=== PATIENT | female | born 1955 | race Two or more races ===

== ENCOUNTER → 2019-11-15 | Outpatient (CLI) | payer OTHER ==
--- NOTE | 2019-11-16 14:50 | MM ---
Reason for exam: screening (asymptomatic). Last mammogram was performed 4 years and 8 months ago. History: Patient is postmenopausal. Physical Findings: A clinical breast exam by your physician is recommended on an annual basis and results should be correlated with mammographic findings. MG Screening Mammo w CAD Bilateral CC and MLO view(s) were taken. Prior study comparison: March 05, 2015, bilateral MG screening mammo w CAD. There are scattered fibroglandular densities. No significant changes when compared with prior studies. ASSESSMENT: Benign, BI-RAD 2 RECOMMENDATION: Routine screening mammogram of both breasts in 1 year.
== END | disposition home or self-care (01) ==
LOC: RADMAMWWP 14:43
PROVIDERS: ATTEND Internal Medicine
DX: Z12.31 Encounter for screening mammogram for malignant neoplasm of breast (principal)
CPT/HCPCS: 77067

== ENCOUNTER → 2021-03-26 | Outpatient (CLI) | payer OTHER ==
--- NOTE | 2021-03-26 15:46 | XR ---
EXAMINATION TYPE: XR chest 2V DATE OF EXAM: 03/26/2021 COMPARISON: NONE HISTORY: R06.01 TECHNIQUE: Frontal and lateral views of the chest are obtained. FINDINGS: Patient rotated toward the left. There is no focal air space opacity, pleural effusion, or pneumothorax seen. The cardiac silhouette size is within normal limits. The osseous structures are intact, there is thoracic spondylosis with anterior bridging with relative preservation of disc heig ht, consider diffuse idiopathic skeletal hyperostosis, surgical clips present in the upper abdomen. IMPRESSION: No acute cardiopulmonary process.
== END | disposition home or self-care (01) ==
LOC: RADXRMAIN 14:44
PROVIDERS: ATTEND Nurse Practitioner Adult Health
DX: R06.01 Orthopnea (principal)
CPT/HCPCS: 71046

== ENCOUNTER → 2024-01-25 | Outpatient (CLI) | payer MEDICARE ==
--- NOTE | 2024-01-31 21:35 | MM ---
Reason for Exam: Screening (asymptomatic). Last mammogram was performed 2 year(s) and 5 month(s) ago. Patient History: Menarche at age 14. First Full-Term at age 23. Hysterectomy at age 44. Postmenopausal. Risk Values: Tonya 5 year model risk: 1.5%. NCI Lifetime model risk: 5.2%. Prior Study Comparison: 03/05/2015 Bilateral Screening Mammogram, [facility]. 11/15/2019 Bilateral Screening Mammogram, [facility]. 08/06/2021 Bilateral Screening Mammogram, [facility]. Tissue Density: There are scattered areas of fibroglandular density. Findings: Analyzed By CAD. The pattern is symmetrical. Pattern appears stable No suspicious groups of microcalcifications, spiculated or lobular masses, architectural distortion or other secondary signs of malignancy are mammographically apparent. Overall Assessment: Benign, BI-RAD 2 Management: Screening Mammogram of both breasts in 1 year. A negative mammogram report should not preclude additional follow up of suspicious palpable abnormalities. Patient should continue monthly self breast exam. A clinical breast exam by your physician is recommended on an annual basis and results should be correlated with mammographic findings. Note on Toyna scores and lifetime risk: 1. A Tonya score greater than 3% is considered moderate risk. If this is the case, consider specialist referral to assess eligibility for a risk reducing agent. 2. If overall lifetime risk for the development of breast cancer is 20% or higher, the patient may qualify for future screening with alternating mammogram and breast MRI. [facility], , 01/31/2024 9:32 PM. Electronically signed and approved by: Horacio Carreno D.O. Radiologis
== END | disposition home or self-care (01) ==
LOC: RADMAMWWP 15:23
PROVIDERS: ATTEND Family Medicine
DX: Z12.31 Encounter for screening mammogram for malignant neoplasm of breast
CPT/HCPCS: 77063; 77067